=== PATIENT | female | born 1955 | race Caucasian/White ===

== ENCOUNTER 2021-03-29 15:07 | Outpatient (CLI) | payer BC, OTHER ==
--- NOTE | 2021-04-05 14:02 | Mammography Report ---
BILATERAL DIGITAL SCREENING MAMMOGRAM 3D/2D: 03/29/2021 CLINICAL: Routine screening. No prior exams were available for comparison. The tissue of both breasts is predominantly fatty. No significant masses, calcifications, or other findings are seen in either breast. IMPRESSION: NEGATIVE There is no mammographic evidence of malignancy. A 1 year screening mammogram is recommended. This exam was interpreted at Station ID: [id number]. NOTE: For mammograms, a report in lay terms will be sent to the patient. Approximately 15% of breast malignancies will not be visualized mammographically. In the management of a palpable breast mass, a negative mammogram must not discourage biopsy of a clinically suspicious lesion. Electronically Signed By: Boo oliver/carole:04/04/2021 08:00:39 ACR BI-RADS Category 1: Negative 3341F PARENCHYMAL PATTERN: (F) - The breast(s) demonstrate(s) diffuse fatty replacement. BI-RADS CATEGORY: (1) - 1 RECOMMENDATION: (ANNUAL) - Recommend routine annual screening mammography. [id number] 1 year screening LATERALITY: (B)
== END 2021-03-29 15:08 | disposition home or self-care (01) ==
LOC: DI.S 15:07
PROVIDERS: ATTEND Nurse Practitioner Family
DX: Z12.31 Encounter for screening mammogram for malignant neoplasm of breast (principal)

== ENCOUNTER 2021-03-29 15:10 | Outpatient (CLI) | payer BC ==
--- NOTE | 2021-03-29 16:58 | XRAY Report ---
PROCEDURE: Knee 3 View BILAT INDICATIONS: BILAT KNEE PAIN TECHNIQUE: 3 views of the bilateral knee(s) were acquired. COMPARISON: None. FINDINGS: Bones: No fractures or dislocations. No suspicious bony lesions. The right knee demonstrates posts urgical changes reflecting with prior ACL repair. There is severe medial compartment narrowing with s ubchondral sclerosis and periarticular osteophytes. Mild appearance of subchondral lucencies are pres ent. Moderate patellofemoral compartment narrowing is also present. The left knee demonstrates severe medial compartment changes with more prominent periarticular osteophytes as well as subchondral scle rosis and subchondral lucencies. Moderate patellofemoral compartment narrowing is present. Soft tissues: No joint effusion. No suspicious soft tissue calcifications. IMPRESSION: 1. Severe bilateral medial compartment narrowing, right greater than left as well as patellofemoral n arrowing consistent with arthritis. Small areas of subchondral lucency are present suggestive of cyst s. However, in appropriate clinical laboratory circumstances, erosions cannot be excluded and correla tion is recommended. Reviewed by: Bailee Hernandez MD on 03/29/2021 4:56 PM PST Approved by: Bailee Hernandez MD on 03/29/2021 4:56 PM PST Station ID: [id number]
== END 2021-03-29 15:11 | disposition home or self-care (01) ==
LOC: DI.S 15:10
PROVIDERS: ATTEND Nurse Practitioner Family
DX: M17.0 Bilateral primary osteoarthritis of knee (principal); R93.6 Abnormal findings on diagnostic imaging of limbs

== ENCOUNTER 2021-06-25 12:41 | Outpatient (CLI) | payer OTHER ==
--- NOTE | 2021-07-04 09:38 | CT Report ---
PROCEDURE: CHEST WO INDICATIONS: PULMONARY NODULE TECHNIQUE: Noncontrast 1mm axial images were acquired from the pulmonary apices to the posterior costophrenic an gles. Axial 5 mm soft tissue kernel reconstructions were performed as well as 8 mm axial MIP and cor onal and sagittal 5 mm reformations. For radiation dose reduction, the following was used: automate d exposure control, adjustment of mA and/or kV according to patient size. COMPARISON: Outside CT of chest dated 06/29/2020 and 10/31/2019 FINDINGS: Image quality: Excellent. Lungs and pleura: Previously described faint 5 mm groundglass opacity nodule in left apex remains unchanged in size and appearance series 4 image 47 and is suggestive of benign process. No new pulmonary nodule is seen. No acute air space opacities. Scattered atelectasis in posterior lateral periphery of bilateral lung hong are seen. No pleural effusions or pneumothorax. Central and peripheral airways are patent and normal in caliber. Mediastinum: Heart size is normal. No pericardial effusion. No mediastinal adenopathy by size crit eria. A few calcified lymph nodes are seen in the mediastinum series 3 image 20. Mild atheroscleroti c calcifications and coronary vessels are seen. Thoracic aorta and central pulmonary arteries are nor mal in size. Esophagus is normal in caliber. There is a small hiatal hernia. Bones and chest wall: No suspicious bony lesions. No vertebral body compression fractures. No axil kya or supraclavicular adenopathy by size criteria. The thyroid is normal in size and there are no incidental findings. Abdomen: Visualized upper abdominal solid organs and bowel loops appear normal in the absence of con trast. IMPRESSION: 1. Stable faint 5 mm groundglass opacity nodule in left apex suggestive of benign etiology. No furthe r follow-up is indicated at this time. 2. No new pulmonary nodule or mass is seen. Mild scattered atelectasis. No focal infiltrate, pleural effusion or pneumothorax. 3. No mediastinal or hilar lymphadenopathy by size criteria. Small hiatal hernia. CLINICAL RECOMMENDATION STATEMENTS: In patients <35 years with an ITN detected on CT, MRI, or extrathyroidal ultrasound, the Committee re commends further evaluation with dedicated thyroid ultrasound if the nodule is "e1 cm and has no susp icious imaging features, and if the patient has normal life expectancy. In patients "e35 years with an ITN detected on CT, MRI, or extrathyroidal ultrasound, the Committee r ecommends further evaluation with dedicated thyroid ultrasound if the nodule is "e1.5 cm and has no s uspicious imaging features, and if the patient has normal life expectancy. (ACR, 2014) Reviewed by: Glenroy Hill MD on 07/04/2021 9:36 AM PDT Approved by: Glenroy Hill MD on 07/04/2021 9:36 AM PDT Station ID: [id number]
== END 2021-06-25 12:42 | disposition home or self-care (01) ==
LOC: DI 12:41
PROVIDERS: ATTEND Nurse Practitioner Family
DX: R91.1 Solitary pulmonary nodule (principal); J98.11 Atelectasis; K44.9 Diaphragmatic hernia without obstruction or gangrene